=== PATIENT | female | born 1945 | race Caucasian/White ===

== ENCOUNTER 2022-09-04 11:17 | Emergency (ER) | payer MEDICARE ==
[2022-09-04] MEDS ORDERED: Morphine 4 MG/ML VIAL ONE (12:18)
[2022-09-04] MEDS ORDERED: Ketorolac Tromethamine 30 MG/ML VIAL ONE (12:19)
== END 2022-09-04 14:15 | disposition home or self-care (01) ==
LOC: CSHERS 11:17
DX: S39.012A Strain of muscle, fascia and tendon of lower back, initial encounter (principal); R20.2 Paresthesia of skin; X50.1XXA Overexertion from prolonged static or awkward postures, initial encounter
CPT/HCPCS: 72148; 96374; 96375; J1885; J2270

== ENCOUNTER 2022-09-28 12:59 | Emergency (ER) | payer MEDICARE ==
[2022-09-28] MEDS ORDERED: Lorazepam 2 MG/ML VIAL ONE (14:05)
== END 2022-09-28 15:55 | disposition home or self-care (01) ==
LOC: CSHERS 12:59
DX: K59.00 Constipation, unspecified (principal); M54.50 Low back pain, unspecified
CPT/HCPCS: 72100; 74018; 96374; J2060

== ENCOUNTER 2025-07-04 12:32 | Outpatient (CLI) | payer MEDICARE | END 2025-07-04 12:33 | disposition home or self-care (01) | LOC: CSHRAD 12:32 | PROVIDERS: ATTEND Internal Medicine Rheumatology | DX: M46.1 Sacroiliitis, not elsewhere classified (principal); M89.8X8 Other specified disorders of bone, other site | CPT/HCPCS: 72202 ==